=== PATIENT | female | born 1940 | race Caucasian/White ===

== ENCOUNTER 2017-09-08 13:11 | Day surgery (SDC) | payer MEDICARE, BC ==
[~2017-09-08] VITALS: Ht 160 cm; Wt 53.0 kg
[~2017-09-08 13:11] MED LIST: BUPIVACAINE 0.25% ONE; FERR-46 PO; HEPARIN 1,000 UNITS/ML, 10ML ONE; LEVO88TA4 PO; LORA-439 PO; MULT-658 PO; OMEG1CAP39 PO; WARF4TAB65 PO
[2017-09-08] MEDS ORDERED: LACTATED RINGERS 1,000 ML IV SCH ×2 (13:39→14:22)
[2017-09-08 14:12] VITALS: BP 110/70
[2017-09-08 15:51] LABS: INTERNATIONAL NORMALIZED RATIO 1.02 (0.93-1.1); PROTHROMBIN TIME 10.6 Seconds (9.6-11.5)
[2017-09-08] MEDS ORDERED: MIDAZOLAM 1 MG/ML, 2ML ONE (16:31)
[2017-09-08] MEDS ORDERED: FENTANYL PF 250 MCG/5ML ONE (16:32)
[2017-09-08] MEDS ORDERED: LIDOCAINE-MPF 2% ,5ML ONE (16:33)
[2017-09-08] MEDS ORDERED: PROPOFOL 10 MG/ML, 20ML ONE (16:33)
[2017-09-08] MEDS ORDERED: CEFAZOLIN 1,000 MG ONE ×2 (16:34)
[2017-09-08] MEDS ORDERED: WATER-INJECTION,STERILE 10 ML IV ONE (16:34)
[2017-09-08] MEDS ORDERED: HYDROmorphone 1 MG/ML, 1ML IV PRN (17:00)
[2017-09-08] MEDS ORDERED: ACETAMINOPHEN 325 MG TABLET PO PRN (17:00)
[2017-09-08] MEDS ORDERED: MEPERIDINE/PF 25MG/0.5ML IVPush PRN (17:00)
[2017-09-08] MEDS ORDERED: PROMETHAZINE 25 MG/ML, 1ML IV PRN (17:00)
[2017-09-08] MEDS ORDERED: FENTANYL PF 100 MCG/2ML IV PRN (17:00)
[2017-09-08] MEDS ORDERED: LABETALOL 5MG/ML, 20ML IV PRN (17:00)
[2017-09-08] MEDS ORDERED: HALOPERIDOL 5 MG/ML IV PRN (17:00)
[2017-09-08] MEDS ORDERED: OXYcodone 5 MG/5 ML ORAL.SOL UDC PO PRN (17:00)
[2017-09-08] MEDS ORDERED: hydrALAzine 20 MG/ML, 1ML IV PRN (17:00)
[2017-09-08] MEDS ORDERED: DEXAMETHASONE 4 MG/ML, 1ML ONE ×2 (17:27)
[2017-09-08] MEDS ORDERED: ONDANSETRON 2MG/ML, 2ML ONE (17:31)
[2017-09-08 18:34] LABS: ANION GAP 5 mmol/L (5-15); CALCIUM 8.4 mg/dL (8.5-10.1); CHLORIDE 108 mmol/L (98-107); CREATININE 0.66 mg/dL (0.55-1.02)
[2017-09-08 19:02] LABS: BASOPHILS # (AUTO) 0.03 x10^3/uL (0-0.1); BASOPHILS % (AUTO) 0 % (0-1); EOSINOPHILS # (AUTO) 0.02 x10^3/uL (0-0.4); EOSINOPHILS % (AUTO) 0 % (1-7); LYMPHOCYTES # (AUTO) 1.43 x10^3/uL (1-3.4); LYMPHOCYTES % (AUTO) 17 % (22-44); MD MORPH REVIEW ONLY; MEAN CORPUSCULAR HEMOGLOBIN 26.1 pg (27.0-34.8); MEAN CORPUSCULAR HGB CONC 32.2 g/dL (32.4-35.8); MEAN PLATELET VOLUME 7.2 fL (7.4-10.4); MONOCYTES # (AUTO) 0.31 x10^3/uL (0.2-0.8); MONOCYTES % (AUTO) 4 % (2-9); NEUTROPHILS # (AUTO) 6.78 x10^3/uL (1.8-6.8); NEUTROPHILS % (AUTO) 79 % (42-75); PLATELET COUNT 186 x10^3/uL (130-400); RED CELL DISTRIBUTION WIDTH 22.1 % (9.6-15.2)
[2017-09-08 19:30] LABS: ANISOCYTOSIS 1+; OVALOCYTES 1+; POLYCHROMASIA 1+
[2017-09-08 19:31] LABS: <PLATELET ESTIMATE> ADEQUATE; <PLT MORPHOLOGY> NORMAL PLT MORPH
== END 2017-09-08 20:30 | disposition home or self-care (01) ==
LOC: OUT 13:11 → 4NOR 19:20 → OUT 20:30
PROVIDERS: ATTEND Specialist
DX: C56.9 Malignant neoplasm of unspecified ovary (principal); Z79.01 Long term (current) use of anticoagulants; Z79.899 Other long term (current) drug therapy; Z86.718 Personal history of other venous thrombosis and embolism; Z90.49 Acquired absence of other specified parts of digestive tract; Z93.2 Ileostomy status; Z87.891 Personal history of nicotine dependence; Z80.0 Family history of malignant neoplasm of digestive organs
CPT/HCPCS: 36415; 36561; 71045; 77001; 80048; 85025; 85610; 86304; 93005; C1788; J0690; J1100; J1644; J2250; J2405; J2704; J3010; J3490